=== PATIENT | female | born 1975 | race Caucasian/White ===

== ENCOUNTER 2017-12-12 15:28 | Outpatient (CLI) | payer OTHER ==
--- NOTE | 2017-12-12 16:54 | MRI ---
MRI OF THE RIGHT KNEE WITHOUT CONTRAST: 12/12/17 INDICATION: Right knee pain. COMPARISON: Radiographs dated 11/30/17. FINDINGS: There is moderate osteoarthrosis involving the right knee. There is some intrinsic degenerative signa l involving the body of the lateral and medial meniscus. No definite meniscal tear is evident. The AC L, PCL, and MCL and LCLC are intact. There is a moderate sized semimembranosus/medial gastrocnemius p opliteal cyst. IT band and popliteus appear within normal limits. Motion artifact slightly degrades i mage quality. IMPRESSION: 1. Moderate osteoarthrosis of the right knee. 2. Some intrinsic degenerative signal involving the meniscus without evidence of grade III signa l to suggest meniscal tear. 3. The ACL, PCL, MCL, LCLC and extensor mechanism appears intact. 4. Moderate sized Burroughs's cyst. POS: CET
== END 2017-12-12 15:29 | disposition home or self-care (01) ==
LOC: SCSMRI 15:28
PROVIDERS: ATTEND Orthopaedic Surgery
DX: M25.561 Pain in right knee (principal); M17.11 Unilateral primary osteoarthritis, right knee; M71.21 Synovial cyst of popliteal space [Baker], right knee

== ENCOUNTER 2018-10-12 19:49 | Emergency (ER) | payer OTHER | END 2018-10-12 21:15 | disposition home or self-care (01) | LOC: SCSER 19:49 | DX: R25.2 Cramp and spasm (principal); E03.9 Hypothyroidism, unspecified | CPT/HCPCS: 99283 ==

== ENCOUNTER 2019-03-04 20:28 | Emergency (ER) | payer OTHER ==
--- NOTE | 2019-03-04 21:14 | RAD ---
EXAM: Chest PA and lateral: HISTORY: Right upper arm pain with inspiration. Cough. Recent surgery 6 days ago. COMPARISON: 09/01/2002 FINDINGS: Heart: Normal cardiac silhouette Aorta: Unremarkable Pulmonary vessels: Normal Costophrenic angles: Costophrenic angles are clear. Lungs: Lungs volumes are diminished. Interstitial opacities may be due to atelectasis, edema or infil trate. Pneumothorax: No pneumothorax Osseous structures: No osseous abnormalities IMPRESSION: 1. Diminished lung volumes, likely due to a poor inspiratory effort. Interstitial opacities may be du e to atelectasis, edema or infiltrate.
[2019-03-04 21:16] LABS: #Basophils 0.1 thou/uL (0.0-0.2); #Eosinphils 0.1 thou/uL (0.0-0.7); #Lymphocytes 1.4 thou/uL (1.20-3.40); #Monocytes 0.8 thou/uL (0.11-0.59); #Neutrophils 9.4 thou/uL (1.40-6.50); %Basophils 0.7 % (0.0-1.0); %Lymphocytes 11.9 % (21.0-51.0); %Monocytes 6.5 % (0.0-10.0); Mean Corpuscular HGB CONC 34.4 g/dL (32.0-36.0); Mean Corpuscular Hemoglobin 31.3 pg (27.0-31.0); Mean Corpuscular Volume 90.8 fL (78.0-98.0); Mean Platelet Volume 6.3 fL (7.4-10.4); Platelet Count 320 thou/uL (130-400); RBC Distribution Width 12.5 % (11.5-14.5); Red Blood Cell (RBC) Count 3.83 mill/uL (4.20-5.40); White Blood Cell (WBC) Count 11.8 thou/uL (4.8-10.8)
[2019-03-04 21:20] LABS: Bilirubin Negative (Negative); Blood, Urine Negative (Negative); Clarity Cloudy (Clear); Glucose, Urine (Dipstick) Negative (Negative); Leukocyte Negative (Negative); Nitrite Negative (Negative); Protein, Urine (Dipstick) Trace mg/dL (Neg-Trace); Urobilinogen 0.2 mg/dL (Less than 2)
[2019-03-04 21:20] LABS: ALT (SGPT) 67 U/L (8-55); Albumin 3.4 g/dL (3.5-5.0); Alkaline Phosphatase 116 U/L (40-150); Anion Gap 17 mmol/L (10-20); BUN (Urea Nitrogen) 10 mg/dL (7.0-18.7); Bilirubin, Total 0.8 mg/dL (0.2-1.2); Calc. Creatinine Clearance 0 mL/min (70-130); Calcium 8.9 mg/dL (7.8-10.44); Carbon Dioxide 20 mmol/L (22-29); Chloride 102 mmol/L (98-107); Estimated GFR-MDRD 81; Globulin 3.5 g/dL (2.4-3.5); Glucose 106 mg/dL (70-105); Potassium 4.7 mmol/L (3.5-5.1); Protein, Total 6.9 g/dL (6.0-8.3); Sodium 134 mmol/L (136-145)
[2019-03-04 21:40] LABS: AST (SGOT) 40 U/L (5-34)
[2019-03-04] MEDS ORDERED: Acetaminophen 500 MG TAB ONE (22:06)
--- NOTE | 2019-03-04 22:15 | CT ---
Exam: CT angiogram of the chest HISTORY: Recent surgery. Chest pain. Eval for pulmonary artery embolism. COMPARISON: None TECHNIQUE: CT angiogram of the chest is performed in the axial plane. Three-dimensional reformatted i mages are submitted for interpretation FINDINGS: Mediastinum: No mass, lymphadenopathy or hematoma. HEART: Normal size. No significant pericardial fluid. Aorta: Visualized aorta has a normal caliber. No periaortic fat stranding. Upper solid abdominal viscera: No abnormality enhancement. Mild splenomegaly, measuring 14.5 cm. Trachea and central bronchi: Patent Pleural spaces: No effusion Lung parenchyma: Patchy linear opacities likely representing areas of scar or atelectasis. Small focu s of consolidation in the middle lobe may be due to atelectasis or pneumonia. 0.4 x 0.5 cm subpleural solid nodule in the right lower lobe adjacent to the right major fissure. Pneumothorax: None Osseous structures: No lytic or blastic lesions Pulmonary arteries:Inadequate contrast opacification of the central, lobar, segmental and subsegmenta l pulmonary arterial system due to timing of contrast bolus. The examination is essentially nondiagnostic in terms of evaluation for pulmonary artery emboli. IMPRESSION: 1. Inadequate and essentially nondiagnostic examination for the evaluation of pulmonary artery emboli due to inadequate opacification pulmonary arterial system. Consider repeat imaging with better timing of contrast bolus. 2. Areas of scarring and atelectasis in the lung parenchyma. No significant pleural fluid or pneumoth orax. 3. Subpleural nodule as described above. Code lung nodule
[2019-03-04] MEDS ORDERED: Aspirin Chewable 81 MG TAB ONE (22:44)
== END 2019-03-05 00:05 | disposition home or self-care (01) ==
LOC: SCSER 20:28
DX: E86.0 Dehydration (principal); J98.11 Atelectasis; R09.1 Pleurisy; E03.9 Hypothyroidism, unspecified; Z79.899 Other long term (current) drug therapy
CPT/HCPCS: 36415; 71046; 71275; 80053; 81003; 83605; 83880; 84484; 85025; 87040; 96360